=== PATIENT | male | born 1995 | race African-American/Black ===

== ENCOUNTER 2022-02-27 06:09 | Emergency (ER) | payer BC, OTHER ==
[2022-02-27 06:46] VITALS: BP 111/73; PULSE 62; RESP 18; TEMP 98.1; BMI 27.3
[2022-02-27] MEDS ORDERED: DIPHTH,PERTUSS(ACELL),TET 0.5 ML DISP.SYRIN IM ONE ×2 (07:34→07:51)
[2022-02-27] MEDS ORDERED: IBUPROFEN 600 MG TABLET (FP) PO ONE (07:34)
[2022-02-27] MEDS ORDERED: BACITRACIN ZINC 15 GM TUBE TOPICAL OINTMENT ONE (07:45)
== END 2022-02-27 09:22 | disposition home or self-care (01) ==
LOC: JER 06:09
PROC: 3E0234Z Introduction of Serum, Toxoid and Vaccine into Muscle, Percutaneous Approach (ICD-10-PCS; principal; 2022-02-27)
DX: S40.811A Abrasion of right upper arm, initial encounter (principal); S30.811A Abrasion of abdominal wall, initial encounter; X99.1XXA Assault by knife, initial encounter
CPT/HCPCS: 90471; 90715; 99284-25

== ENCOUNTER 2023-10-03 09:02 | Emergency (ER) | payer SELFPAY ==
[2023-10-03 09:27] VITALS: BP 123/83; PULSE 53; RESP 20; TEMP 98.3; BMI 26.6
== END 2023-10-03 09:50 | disposition home or self-care (01) ==
LOC: FER 09:02
DX: L73.9 Follicular disorder, unspecified (principal)
CPT/HCPCS: 99283-25

== ENCOUNTER 2024-07-12 15:09 | Emergency (ER) | payer SELFPAY ==
[2024-07-12 15:20] VITALS: BP 121/66; PULSE 68; RESP 18; TEMP 98.5; BMI 27.3
[2024-07-12] MEDS ORDERED: IBUPROFEN 600 MG TABLET (FP) PO ONE (18:03)
[2024-07-12] MEDS: IBUPROFEN 600 MG TABLET (FP) PO ONE (18:11)
== END 2024-07-12 18:16 | disposition home or self-care (01) ==
LOC: JER 15:09
DX: R06.02 Shortness of breath (principal); R07.9 Chest pain, unspecified; R20.2 Paresthesia of skin; R29.898 Other symptoms and signs involving the musculoskeletal system
CPT/HCPCS: 71046-TC-FY; 93005; 93010; 99283-25

== ENCOUNTER 2024-08-25 20:09 | Emergency (ER) | payer OTHER ==
[2024-08-25 20:16] VITALS: RESP 16; BMI 35.2
[2024-08-25 20:26] VITALS: BP 109/79; PULSE 59; TEMP 98.4
== END 2024-08-25 20:41 | disposition home or self-care (01) ==
LOC: FER 20:09
DX: R07.89 Other chest pain (principal)
CPT/HCPCS: 93005; 99283-25